=== PATIENT | male | born 1955 | race American Indian/Alaskan Native ===

== ENCOUNTER 2017-07-19 07:46 | Outpatient (CLI) | payer MEDICARE, OTHER ==
[2017-07-19 08:57] LABS: Blood Urea Nitrogen 6 mg/dL (9-20)
[2017-07-19] MEDS ORDERED: NACL ONE (09:06)
--- NOTE | 2017-07-20 10:13 | Cat Scan Report ---
CT ANGIO ABD/FEMORAL ABD AORTA: HISTORY: Atherosclerosis of nez perce arteries of extremities with intermittent claudication. TECHNIQUE: Helical CT imaging with 1.25mm reconstructions following IV contrast. Sagittal and Coronal 2D reformatted images. 3 dimensional volume rendering technique. Stenosis was measured using NASCET criteria. COMPARISON: none. FINDINGS: ABDOMINAL AORTA: Mild partially calcified plaques. No evidence for aneurysm, dissection. Less than 20% stenosis. The celiac axis, SMA and bilateral single renal arteries are patent with less than 20% stenosis. The origin of the WESLY is occluded. COMMON ILIAC ARTERIES: Mild calcified plaques but less than 30% stenosis. EXTERNAL ILIAC ARTERIES: A right external iliac artery stent is identified with less than 30% stenosis. 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 INTERNAL ILIAC ARTERIES: Up to 50% stenosis bilaterally. RIGHT LOWER EXTREMITY: There are diffuse calcific plaques throughout the right lower extremity. There is a long stent transversing most of the right superficial femoral artery with less than 20% stenosis. The right popliteal artery demonstrates 60% stenosis in its midportion. The arterial structures distal to the knee are patent to the ankle but demonstrate diffuse calcifications and probable multifocal stenosis. LEFT LOWER EXTREMITY: The left superficial femoral artery contains multiple stents and is occluded its entire length. There is reconstitution of flow in the left popliteal artery which demonstrates up to 50% stenosis. There are diffuse calcifications throughout the arterial structures distal to the knee with multifocal stenosis. IMPRESSION: Diffuse atherosclerotic disease. 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
== END 2017-07-19 07:47 | disposition home or self-care (01) ==
LOC: CT 07:46 → EDSEX 07:46 → CT 07:47
PROVIDERS: ATTEND Radiology Diagnostic Radiology
DX: I70.213 Atherosclerosis of native arteries of extremities with intermittent claudication, bilateral legs (principal); I74.5 Embolism and thrombosis of iliac artery
CPT/HCPCS: 36415; 75635; 82565; 84520; Q9967